=== PATIENT | female | born 1975 | race Hispanic/Latino ===

== ENCOUNTER 2021-05-22 15:01 | Emergency (ER) | payer BC ==
[~2021-05-22] VITALS: Ht 154.9 cm; Wt 79.8 kg
[2021-05-22] MEDS ORDERED: SODIUM CHLORIDE 0.9% 1000ML 1,000 ML IV SCH (15:15)
[2021-05-22] MEDS ORDERED: ONDANSETRON HCL INJ 2MG/ML 2ML 2 MG/ML VIAL IV STA (15:25)
[2021-05-22] MEDS ORDERED: KETOROLAC TROMETHAMINE 30 MG/ML VIAL IV STA (15:25)
[2021-05-22] MEDS ORDERED: KETOROLAC TROMETHAMINE 60 MG/2 ML VIAL ONE (15:42)
[2021-05-22] MEDS ORDERED: IOPAMIDOL 370 MG/ML 200 ML INFUS..BTL INJ ONE (15:55)
[2021-05-22] MEDS ORDERED: SODIUM CHLORIDE 0.9% 50ML 50 ML ONE (15:55)
[2021-05-22] MEDS ORDERED: LEVSIN-SL0.125 MG SL (18:23)
[2021-05-22] MEDS ORDERED: ONDANSETRON ODT4 MG PO (18:23)
[2021-05-22 18:29] VITALS: BP 135/76
== END 2021-05-22 18:30 | disposition home or self-care (01) ==
LOC: EDBD 15:01 → FSED 15:05
DX: R10.84 Generalized abdominal pain (principal); A08.4 Viral intestinal infection, unspecified; R11.0 Nausea; R51.9 Headache, unspecified
CPT/HCPCS: 74177; 99284; J1885; J2405; J7030; Q9967